=== PATIENT | female | born 1980 | race American Indian/Alaskan Native ===

== ENCOUNTER 2019-11-01 21:02 | Emergency (ER) | payer SELFPAY ==
--- NOTE | 2019-11-01 23:24 | EDM.PDOC ---
ED HPI GENERAL MEDICAL PROBLEM - General Chief Complaint: Lower Extremity Injury/Pain Stated Complaint: FELL DOWNSTAIRS Time Seen by Provider: 11/01/19 22:50 Source of Information: Reports: Patient, RN, RN Notes Reviewed History Limitations: Reports: No Limitations - History of Present Illness INITIAL COMMENTS - FREE TEXT/NARRATIVE: patient to the ER with complaint of right knee pain. Patient states she fell down the steps this morning, she tripped over her child and her coat. Patient complains of pain and swelling with ambulation, weightbearing, and bending of the knee. 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 [No Known Home Meds] 11/01/19 [History] Past Medical History - Past Health History Medical/Surgical History: Denies Medical/Surgical History Social & Family History - Family History Family Medical History: Noncontributory - Tobacco Use Smoking Status *Q: Current Every Day Smoker Years of Tobacco use: 17 Packs/Tins Daily: 0.1 - Caffeine Use Caffeine Use: Reports: Coffee - Recreational Drug Use Recreational Drug Use: No Review of Systems - Review of Systems Review Of Systems: Comprehensive ROS is negative, except as noted in HPI. ED EXAM, GENERAL - Physical Exam Exam: See Below Exam Limited By: No Limitations General Appearance: Alert, WD/WN, Mild Distress Eye Exam: Bilateral Eye: EOMI, Normal Inspection Ears: Normal External Exam, Hearing Grossly Normal Nose: Normal Inspection Throat/Mouth: Normal Inspection, Normal Voice, No Airway Compromise Head: Atraumatic, Normocephalic Neck: Normal Inspection, Supple, Non-Tender, Full Range of Motion Respiratory/Chest: No Respiratory Distress, Lungs Clear, Normal Breath Sounds, No Accessory Muscle Use, Chest Non-Tender Cardiovascular: Normal Peripheral Pulses, Regular Rate, Rhythm, No Edema, No Gallop, No JVD, No Murmur, No Rub Peripheral Pulses: 2+: Radial (L), Radial (R) GI/Abdominal: Normal Bowel Sounds, Soft, Non-Tender (Female) Exam: Deferred Rectal (Female) Exam: Deferred Back Exam: Normal Inspection, Full Range of Motion, NT Extremities: Joint Swelling (rate 80), Leg Pain (right knee), Limited Range of Motion (right knee) Neurological: Alert, Oriented, Normal Cognition Psychiatric: Normal Affect, Normal Mood Skin Exam: Warm, Dry, Intact, Normal Color, No Rash Lymphatic: No Adenopathy Course - Vital Signs Last Recorded V/S: Last Vital Signs Temp 98.9 F 11/01/19 22:29 Pulse 96 11/01/19 22:29 Resp 16 11/01/19 22:29 BP 171/93 H 11/01/19 22:29 Pulse Ox 99 11/01/19 22:29 - Orders/Labs/Meds Orders: Active Orders 24 hr Category Date Time Status Knee 3V Rt [CR] Urgent Exams 11/01/19 22:28 Taken - Radiology Interpretation Free Text/Narrative:: Right knee xray: FINDINGS: Bones/joints: There is a curvilinear calcification adjacent to the medial femoral condyle paralleling the cortex. This most compatible with a Dalia-Stieda lesion. There is a linear is lucency through the mid patella, best appreciated on the sunrise view. This is concerning for a nutrient channel versus a minimally displaced patellar fracture. A small suprapatellar effusion is present. No other acutely displaced fractures are appreciated. No aggressive osseous lesions. Soft tissues: Mild prepatellar soft tissue swelling suggested. IMPRESSION: 1. Dalia-Stieda lesion. 2. Question of a patellar midbody minimally displaced fracture versus a nutrient channel. 3. Small suprapatellar effusion. Thank you for allowing us to participate in the care of your patient. Dictated and Authenticated by: Albert Emanuel MD 11/01/2019 11:13 PM Central Time ([place] & [place]) See rad report Departure - Departure Time of Disposition: 23:37 Disposition: Home, Self-Care 01 Condition: Fair Clinical Impression: Tibial collateral bursitis [Dalia-Stieda], right leg Right patella fracture Qualifiers: Encounter type: initial encounter Fracture type: closed Fracture morphology: unspecified fracture morphology Fracture alignment: displaced Qualified Code(s) : S82.001A - Unspecified fracture of right patella, initial encounter for closed fracture - Discharge Information *PRESCRIPTION DRUG MONITORING PROGRAM REVIEWED*: No *COPY OF PRESCRIPTION DRUG MONITORING REPORT IN PATIENT NETO: No Instructions: Crutch Use, Adult, [id number], Bursitis, [id number], How to Use a Knee Immobilizer, [id number], Patellar Fracture With Rehab-[facility] Forms: ED Department Discharge Additional Instructions: Wear brace at all times, except bedtime May use Tylenol and/or Ibuprofen as directed for pain Elevate and ice the area as much as possible Call Ortho in the morning and make an appointment to be seen. Sepsis Event Note - Evaluation Sepsis Screening Result: No Definite Risk - Focused Exam Vital Signs: Vital Signs Temp Pulse Resp BP Pulse Ox 11/01/19 22:29 98.9 F 96 16 171/93 H 99 Date Exam was Performed: 11/02/19 Time Exam was Performed: 00:03 - My Orders Last 24 Hours: My Active Orders 11/01/19 22:28 Knee 3V Rt [CR] Urgent - Assessment/Plan Last 24 Hours: My Active Orders 11/01/19 22:28 Knee 3V Rt [CR] Urgent
== END 2019-11-01 23:45 | disposition home or self-care (01) ==
LOC: DL.ED 21:02
DX: S82.001A Unspecified fracture of right patella, initial encounter for closed fracture (principal); M76.41 Tibial collateral bursitis [Pellegrini-Stieda], right leg; F17.210 Nicotine dependence, cigarettes, uncomplicated; W10.9XXA Fall (on) (from) unspecified stairs and steps, initial encounter
CPT/HCPCS: 73562-RT; 99283-25; 99284